=== PATIENT | female | born 1955 | race Caucasian/White ===

== ENCOUNTER 2023-11-26 12:45 | Emergency (ER) | payer MEDICARE ==
[2023-11-26 13:51] LABS: ALBUMIN 4.5 g/dL (3.2-5.5); ALBUMIN/GLOBULIN RATIO 1.4 (1.0-2.2); BILIRUBIN,TOTAL 0.6 mg/dL (0.2-1.0); CALCIUM 9.5 mg/dL (8.5-10.3); CREATININE 0.6 mg/dL (0.6-1.3); POTASSIUM 3.7 mmol/L (3.5-4.5); TOTAL PROTEIN 7.7 g/dL (6.4-8.9)
--- NOTE | 2023-11-26 13:54 | ED Physician Documentation ---
PD HPI HEADACHE - Stated complaint Stated Complaint: HIGH BP - Chief complaint Chief Complaint: General - History obtained from History obtained from: Patient - History of Present Illness Timing - onset: Today, Yesterday Timing - onset during: Light activity, Emotional event (she is here for family and also to assist son with young baby in household. Has felt stressed of course. Noted BP to be higher. Today with headache and not feeling well. No URI per se. Took BP and it was over 200 sysolic. Did not take any meds for GONZALEZ.) Timing - duration: Days (1) Timing - details: Gradual onset, Still present, Waxing and waning Worst headache ever?: No: Worst headache ever? Location: Global Quality: Throbbing, Aching Associated symptoms: No: Fever, Vomiting, Weakness, Numbness Contributing factors: Hypertension. No: Anticoagulated Similar symptoms before: Diagnosis (has had siimilar GONZALEZ when BP is excessively high. She does record table of her BS/HR/BP regularly for me to see as well.) Review of Systems Constitutional: denies: Fever, Chills Nose: denies: Rhinorrhea / runny nose, Congestion Throat: denies: Sore throat Respiratory: denies: Cough GI: reports: Nausea. 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 HEENT: Tonsil/Adenoidectomy - Present Medications Home Medications: Ambulatory Orders Medication Instructions Recorded Confirmed LORazepam [Ativan] 1 mg PO BID PRN #12 tablet 11/26/23 Losartan [Cozaar] 50 mg PO DAILY #30 tablet 11/26/23 - Allergies Allergies/Adverse Reactions: Allergies Allergy/AdvReac Type Severity Reaction Status Date / Time erythromycin base Allergy Cramps Verified 11/26/23 13:59 [From Staticin] ethyl alcohol [From Staticin] Allergy Cramps Verified 11/26/23 13:59 meperidine [From Demerol] Allergy Nausea Verified 11/26/23 13:59 Penicillins Allergy Rash Verified 11/26/23 13:59 - Social History Does the pt smoke?: No Smoking Status: Never smoker PD ED PE NORMAL - Vitals Vital signs reviewed: Yes (168 systolic at this time.) - General General: Alert and oriented X 3, No acute distress, Well developed/nourished - Neck Neck: Supple, no meningeal sign, No adenopathy, No bruit - Cardiac Cardiac: RRR, No murmur - Respiratory Respiratory: No respiratory distress, Clear bilaterally - Abdomen Abdomen: Soft, Non tender - Derm Derm: Normal color, Warm and dry - Neuro Neuro: Alert and oriented X 3, No motor deficit, No sensory deficit, Normal speech Eye Opening: Spontaneous Motor: Obeys Commands Verbal: Oriented GCS Score: 15 Results - Vitals Vitals: Vital Signs - 24 hr 11/26/23 11/26/23 11/26/23 12:48 14:52 15:13 Temperature 36.6 C Heart Rate 77 71 69 Respiratory 20 16 18 Rate Blood Pressure 175/82 H 152/83 H 120/93 H O2 Saturation 97 99 95 Oxygen O2 Source Room air - Labs Labs: Laboratory Tests 11/26/23 11/26/23 13:35 13:35 WBC 10.5 RBC 4.30 Hgb 13.7 Hct 41.7 MCV 97.0 MCH 31.9 H MCHC 32.9 RDW 11.7 L Plt Count 285 MPV 10.9 H Neut # (Auto) 8.2 H Lymph # (Auto) 1.6 Ellis # (Auto) 0.5 Eos # (Auto) 0.1 Baso # (Auto) 0.0 Absolute Nucleated RBC 0.00 Nucleated RBC % 0.0 Sodium 140 Potassium 3.7 Chloride 102 Carbon Dioxide 30 Anion Gap 8.0 BUN 13 Creatinine 0.6 Estimated GFR (MDRD) 100 Glucose 192 H Calcium 9.5 Total Bilirubin 0.6 AST 16 ALT 16 Alkaline Phosphatase 81 Troponin I High Sens 4.8 Total Protein 7.7 Albumin 4.5 Globulin 3.2 Albumin/Globulin Ratio 1.4 PD Medical Decision Making - ED course Complexity details: reviewed results, considered differential (having elevated BP which makes sense with travel, stress of activities, posible congesiton, and less sleep she has had. Can add short term other BP med and have her f/u PCP when back home next week. ), d/w patient Departure - Departure Disposition: 01 Home, Self Care Clinical Impression: Headache, Situational anxiety, Elevated blood pressure reading Condition: Stable Record reviewed to determine appropriate education?: Yes Prescriptions: LORazepam [Ativan] 1 mg PO BID PRN #12 tablet PRN Reason: Anxiety Losartan [Cozaar] 50 mg PO DAILY #30 tablet Comments: Your blood pressure was high today and by your logs looks like it has been on the verge of high for a bit. It is reasonable to add a second blood pressure medicine called losartan for at least the short-term. Follow-up with your primary care back home to discuss ongoing. A lot of the extra high today reading can relate to the situational stress of travel and grief etc. In the short-term I prescribed lorazepam to use twice daily if needed for anxiety or stress. Particularly this may be useful for before bedtime. I sent the prescriptions to [facility] pharmacy. Follow-up with your primary care back home. Forms: PCP List Discharge Date/Time: 11/26/23 15:13
[2023-11-26 13:59] LABS: TROPONIN I HIGH SENSITIVITY 4.8 ng/L (2.3-14.8)
--- NOTE | 2023-11-26 14:00 | XRAY Report ---
PROCEDURE: Chest 1V INDICATIONS: elevated bp, cp, head pain TECHNIQUE: One view of the chest was acquired. COMPARISON: None. FINDINGS: Surgical changes and devices: None. Lungs and pleura: No pleural effusions or pneumothorax. Lungs are clear. Mediastinum: Mediastinal contours appear normal. Heart size is normal. Bones and chest wall: No suspicious bony lesions. Overlying soft tissues appear unremarkable. IMPRESSION: No acute cardiopulmonary process. Reviewed by: Pedro Burton MD on 11/26/2023 1:59 PM PDT Approved by: Pedro Burton MD on 11/26/2023 1:59 PM PDT Station ID: [id number]
[2023-11-26 14:22] LABS: BASOPHILS % (AUTO) 0.3 %; EOSINOPHILS # (AUTO) 0.1 10^3/uL (0.0-0.7); EOSINOPHILS % (AUTO) 0.8 %; HCT - HEMATOCRIT 41.7 % (37.0-47.0); HGB - HEMOGLOBIN 13.7 g/dL (12.0-16.0); LYMPHOCYTES # (AUTO) 1.6 10^3/uL (1.5-3.5); MEAN CORPUSCULAR HEMOGLOBIN 31.9 pg (27.0-31.0); MEAN CORPUSCULAR HGB CONC 32.9 g/dL (32.0-36.0); MEAN PLATELET VOLUME 10.9 fL (7.9-10.8); MONOCYTES # (AUTO) 0.5 10^3/uL (0.0-1.0); MONOCYTES % (AUTO) 5.1 %; NEUTROPHILS # (AUTO) 8.2 10^3/uL (1.5-6.6); NEUTROPHILS % (AUTO) 78.3 %; PLT - PLATELET COUNT 285 10^3/uL (130-450); RED CELL DISTRIBUTION WIDTH 11.7 % (12.0-15.0); WHITE BLOOD COUNT 10.5 x10^3/uL (4.8-10.8)
[2023-11-26] MEDS: LOSARTAN 50 MG TABLET PO STA (14:51)
[2023-11-26] MEDS: ACETAMINOPHEN 500 MG TABLET PO STA (14:51)
[2023-11-26] MEDS: ONDANSETRON ODT 4 MG TABLET TL STA (15:10)
[2023-11-26 15:14] VITALS: BP 120/93; O2SAT 95
== END 2023-11-26 15:13 | disposition home or self-care (01) ==
LOC: ED 12:45
DX: I10 Essential (primary) hypertension (principal); R51.9 Headache, unspecified; F41.8 Other specified anxiety disorders; Z63.4 Disappearance and death of family member
CPT/HCPCS: 36415; 71045; 80053; 84484; 85025; 99283; A9270; Q0162